=== PATIENT | male | born 1970 | race Hispanic/Latino ===

== ENCOUNTER 2019-04-14 21:56 | Emergency (ER) | payer SELFPAY ==
[~2019-04-14] VITALS: Ht 167.6 cm; Wt 86.2 kg
[2019-04-15] MEDS ORDERED: NORCO 5-325 TA1 EACH PO (00:48)
[2019-04-15] MEDS ORDERED: ZOFRAN4 MG PO (00:48)
== END 2019-04-15 01:22 | disposition home or self-care (01) ==
LOC: ED 21:56
DX: N13.2 Hydronephrosis with renal and ureteral calculous obstruction (principal)
CPT/HCPCS: 74176; 80053; 81001; 83690; 85025; 96361; 96374; 96375; 99284-25; J1885; J2405; J7030